=== PATIENT | male | born 1965 | race Caucasian/White ===

== ENCOUNTER 2021-05-28 14:26 | Emergency (ER) | payer BC ==
[2021-05-28 15:52] LABS: HEMOGLOBIN 15.2 gm/dl (14.0-17.5); RED BLOOD COUNT 4.9 M/UL (4.20-5.50); WHITE BLOOD COUNT 10.6 K/UL (4.5-11.0)
[2021-05-28 16:25] LABS: BUN/CREATININE RATIO 14 (0-10)
[2021-05-28] MEDS ORDERED: ASPIRIN CHEWABL81 MG PO (19:57)
== END 2021-05-28 20:08 | disposition home or self-care (01) ==
LOC: ER1 14:26
PROVIDERS: Physician Assistant Medical
DX: R51.9 Headache, unspecified (principal); I10 Essential (primary) hypertension; E78.5 Hyperlipidemia, unspecified; Z20.822 Contact with and (suspected) exposure to COVID-19
CPT/HCPCS: 70450; 71045; 80053; 82550; 82553; 83874; 84484; 85025; 85610; 93005; 99284; U0002

== ENCOUNTER → 2021-06-19 | Outpatient (CLI) | payer BC ==
[~2021-06-19] MED LIST: ASPIRIN CHEWABL81 MG PO
== END ==
LOC: CT 06-18 08:00
DX: R07.9 Chest pain, unspecified (principal)
CPT/HCPCS: ECHO; 70498; 71275; 93306; Q9967